=== PATIENT | female | born 1955 | race Caucasian/White ===

== ENCOUNTER 2018-07-11 14:55 | Observation (INO) ==
--- NOTE | 2018-07-11 19:47 | ED ---
HPI General Chief Complaint: Chest Pain Stated Complaint: chest,back,neck pain Time Seen by Provider: 07/11/18 19:43 Source: patient Mode of arrival: ambulatory Limitations: no limitations History of Present Illness HPI narrative: 63-year-old female patient with history of CAD and angina according to her paperwork from her physician, Parkinson's disease, anxiety, irritable bowel disease, presents to the ER today sent in by her primary care doctor because she started having substernal chest pains this morning with radiation to the back, upper neck, and also was mildly anxious. They did an EKG this morning which showed an abnormal T wave inversion and 1 of the leads. Patient states that the pain is getting a bit better. She reports mild shortness of breath earlier but she states is not as bad now. She denies any abdominal pains, coughing, or other symptoms. Chest pain is reported to be a 5 out of 10. Modifying Factors: None Associated Signs & Symptoms: Substernal chest pain with radiation to the back Risk Factors: Coronary artery disease Related Data Home Medications Medication Instructions Recorded Confirmed alprazolam 0.25 mg PO HS PRN 07/11/18 07/11/18 atorvastatin 20 mg PO DAILY 07/11/18 07/11/18 bupropion HCl 75 mg PO DAILY 07/11/18 07/11/18 carbidopa-levodopa 2 tab PO QID 07/11/18 07/11/18 donepezil 5 mg PO HS 07/11/18 07/11/18 fluticasone 1 spray INTRANASAL DAILY 07/11/18 07/11/18 sertraline 150 mg PO DAILY 07/11/18 07/11/18 Allergies Allergy/AdvReac Type Severity Reaction Status Date / Time Sulfa (Sulfonamide Allergy Hives Verified 07/11/18 19:37 Antibiotics) Review of Systems ROS: all other systems reviewed are negative ON LICENSE OF [facility] Medical History Medical History Anginal pain (Acute) Anxiety (Acute) Coronary artery disease (Acute) Depression (Acute) Diverticulosis of colon (Acute) Fibroadenoma of left breast (Acute) GERD (gastroesophageal reflux disease) (Acute) H/O: hysterectomy (Acute) Hiatal hernia (Acute) IBS (irritable bowel syndrome) (Acute) Osteoporosis (Acute) Parkinson disease (Acute) Peripheral neuropathy (Acute) Surgical History Surgical History H/O breast biopsy (Acute) H/O dilation of urethra (Acute) History of carpal tunnel release (Acute) Social History Social History Substance History: No History of Abuse Second Hand Smoke Exposure: No Smoking Status: Never smoker How Often Do You Have a Drink Containing Alcohol: 2 to 4 times a month Recent Travel in [facility] within the Last 8 Weeks: No Recent Out of Country Travel within the Last 8 Weeks: No Immunization History Tetanus Immunization: Unsure Exam Narrative Exam Narrative: GENERAL: Well-developed elderly female patient currently and mild distress. Awake and oriented x3. SKIN: Focused skin assessment warm/dry. HEAD: Atraumatic. Normocephalic. EYES: Pupils equal and round. No scleral icterus. No injection or drainage. ENT: No nasal bleeding or discharge. Mucous membranes pink and moist. NECK: Trachea midline. No JVD. CARDIOVASCULAR: Regular rate and rhythm. No murmur appreciated. RESPIRATORY: No accessory muscle use. Clear to auscultation. Breath sounds equal bilaterally. GASTROINTESTINAL: Abdomen soft, non-tender, nondistended. Hepatic and splenic margins not palpable. MUSCULOSKELETAL: No obvious deformities. No clubbing. No cyanosis. No edema. NEUROLOGICAL: Awake and alert. No obvious cranial nerve deficits. Motor grossly within normal limits. Normal speech. PSYCHIATRIC: Mildly anxious mood and affect; insight and judgment normal. Course Initial Documented Vital Signs Temperature 98.1 F 07/11/18 15:11 Pulse Rate 73 07/11/18 15:11 Respiratory Rate 14 07/11/18 15:11 Blood Pressure 123/55 L 07/11/18 15:11 Pulse Oximetry 100 07/11/18 15:11 Last Documented Vital Signs Temperature 98.1 F 07/11/18 15:11 Pulse Rate 80 07/11/18 19:44 Respiratory Rate 16 07/11/18 19:44 Blood Pressure 140/85 07/11/18 19:44 Pulse Oximetry 99 07/11/18 19:44 Medical Decision Making MDM Narrative Medical decision making narrative: Lab work, chest x-ray, EKGs are fairly unremarkable. Troponins are negative. At this point, my plan would be to admit her for further evaluation and a chest pain center. Medical Screen Exam Complete: Yes Emergency Medical Condition: Yes Differential Diagnosis Differential Diagnosis: ACS versus dysrhythmias versus anxiety attack Lab Data Lab results reviewed: Yes I reviewed the patient's lab results. Result diagrams: 07/11/18 19:49 07/11/18 19:49 Lab Results 07/11/18 07/11/18 Range/Units 19:49 19:49 WBC 6.9 (4.0-11.0) th/mm3 RBC 4.38 (4.00-5.30) mil/mm3 Hgb 13.7 (11.6-15.3) gm/dL Hct 40.2 (35.0-46.0) % MCV 91.8 (80.0-100.0) fL MCH 31.3 (27.0-34.0) pg MCHC 34.1 (32.0-36.0) % RDW 14.3 (11.6-17.2) % Plt Count 321 (150-450) th/mm3 MPV 7.7 (7.0-11.0) fL Neut % (Auto) 61.5 (16.0-70.0) % Lymph % (Auto) 26.9 (9.0-44.0) % Price % (Auto) 8.7 H (0.0-8.0) % Eos % (Auto) 1.7 (0.0-4.0) % Baso % (Auto) 1.2 (0.0-2.0) % Neut # (Auto) 4.3 (1.8-7.7) th/mm3 Lymph # (Auto) 1.9 (1.0-4.8) th/mm3 Price # (Auto) 0.6 (0.0-0.9) th/mm3 Eos # (Auto) 0.1 (0.0-0.4) th/mm3 Baso # (Auto) 0.1 (0.0-0.2) th/mm3 WBC Differential . Differential Comment Auto diff final Sodium 140 (136-145) meq/L Potassium 3.3 L (3.5-5.1) meq/L Chloride 108 H (98-107) meq/L Carbon Dioxide 23.9 (21.0-32.0) meq/L Anion Gap 8 (5-15) meq/L BUN 14 (7-18) mg/dL Creatinine 0.95 (0.50-1.00) mg/dL Estimated GFR 59 L (>89) mL/min Random Glucose 90 (74-106) mg/dL Calcium 9.0 (8.5-10.1) mg/dL Total Bilirubin 0.6 (0.2-1.0) mg/dL AST 29 (15-37) U/L ALT 12 (10-53) U/L Alkaline Phosphatase 88 (45-117) U/L Troponin I Less than 0.02 L (0.02-0.05) ng/mL Total Protein 7.0 (6.4-8.2) g/dL Albumin 3.8 (3.4-5.0) g/dL Imaging Data Attestation: I personally reviewed and interpreted this imaging study as follows : Radiologist's impression: Chest X-Ray 07/11/18 19:44 CONCLUSION: 1. No acute abnormality or significant interval change. ECG Data Attestation: I personally reviewed and interpreted this ECG as follows: Interpretation: EKG shows NSR, no ST elevation or depression, and no arrhythmias. Notable for T wave inversion in V2. Discharge Plan Discharge Disposition Patient Disposition: ED Admit(ED Internal Use Only) Discharge Condition Condition: Stable Discharge Order Discharge Orders: ED Use Only Admit Order (Routine); Ordered 07/11/18 Ordered By: Mark Galan Discharge Details Anticipated Discharge Date: 07/11/18 Diagnosis: Chest pain Physicians Team ED Provider: Mark Galan Primary Care Provider: UNKNOWN, Rxs /Orders / Referrals /Forms Prescriptions: No Action atorvastatin 20 mg Tablet 20 mg PO DAILY RF: 0 donepezil 5 mg Tablet 5 mg PO HS RF: 0 carbidopa-levodopa 25-100 mg Tablet Extended Release 2 tab PO QID RF: 0 sertraline 100 mg Tablet 150 mg PO DAILY RF: 0 alprazolam 0.25 mg Tablet 0.25 mg PO HS PRN (Reason: Anxiety) RF: 0 bupropion HCl 75 mg Tablet 75 mg PO DAILY RF: 0 fluticasone 50 mcg/actuation [place],Suspension 1 spray INTRANASAL DAILY RF: 0 Discharge Instructions Patient Printed Instructions: Chest Pain (ED) Discharge Interventions Interventions: Vital Signs Last Done: 07/11/18 19:44 Status ED Status: With Doctor
[2018-07-11 20:20] LABS: Baso # (Auto) 0.1 th/mm3 (0.0-0.2); Baso % (Auto) 1.2 % (0.0-2.0); Eos # (Auto) 0.1 th/mm3 (0.0-0.4); Eos % (Auto) 1.7 % (0.0-4.0); Hematocrit 40.2 % (35.0-46.0); Hemoglobin 13.7 gm/dL (11.6-15.3); Lymph # (Auto) 1.9 th/mm3 (1.0-4.8); Lymph % (Auto) 26.9 % (9.0-44.0); Mean Corpuscular HGB Conc 34.1 % (32.0-36.0); Mean Corpuscular Hemoglobin 31.3 pg (27.0-34.0); Mean Corpuscular Volume 91.8 fL (80.0-100.0); Mean Platelet Volume 7.7 fL (7.0-11.0); Mono # (Auto) 0.6 th/mm3 (0.0-0.9); Mono % (Auto) 8.7 % (0.0-8.0); Neut # (Auto) 4.3 th/mm3 (1.8-7.7); Neut % (Auto) 61.5 % (16.0-70.0); Platelet Count 321 th/mm3 (150-450); Red Blood Count 4.38 mil/mm3 (4.00-5.30); Red Cell Distribution Width 14.3 % (11.6-17.2); White Blood Count 6.9 th/mm3 (4.0-11.0)
--- NOTE | 2018-07-11 20:32 | XR ---
EXAM DATE: 07/11/2018 8:28 PM EST AGE/SEX: 63 years / Female INDICATIONS: Patient presents with chest and shoulder blade pain for 1 day. CLINICAL DATA: This is the patient's initial encounter. Patient reports that signs and symptoms have been present for 1 day and indicates a pain score of 8/10. MEDICAL/SURGICAL HISTORY: Cardiovascular disease. None. COMPARISON: [facility] [place], CHEST PA & LAT, 12/26/2015. . FINDINGS: No significant new focal pleural or parenchymal opacities. The cardiomediastinal contours are unrema rkable. Osseous structures are intact. CONCLUSION: 1. No acute abnormality or significant interval change. Electronically signed by: Osman Edge MD Board Certified Radiologist 07/11/2018 8:30 PM EST
[2018-07-11 20:35] LABS: Albumin 3.8 g/dL (3.4-5.0); Anion Gap 8 meq/L (5-15); Aspartate Aminotransferase 29 U/L (15-37); Blood Urea Nitrogen 14 mg/dL (7-18); Carbon Dioxide 23.9 meq/L (21.0-32.0); Chloride 108 meq/L (98-107); Glomerular Filtration Rate 59 mL/min (>89); Glucose,Random 90 mg/dL (74-106); Potassium 3.3 meq/L (3.5-5.1); Sodium 140 meq/L (136-145)
[2018-07-11 20:36] LABS: Alanine Aminotransferase 12 U/L (10-53)
[2018-07-11 20:40] LABS: Alkaline Phosphatase 88 U/L (45-117)
[2018-07-11 23:42] LABS: Creatine Kinase 101 U/L (26-192)
[2018-07-12] MEDS: Aspirin 325 MG Tablet PO SCH ×2 (01:36→08:33)
[2018-07-12 02:20] LABS: Creatine Kinase 91 U/L (26-192)
[2018-07-12] MEDS ORDERED: Potassium Chloride 10 MEQ ER Capsule PO ONE (07:30)
[2018-07-12 08:38] VITALS: RESP 18
[2018-07-12] MEDS ORDERED: ALPRAZolam 0.25 MG Tablet PO PRN (09:39)
--- NOTE | 2018-07-12 09:48 | P.HPCA ---
History of Present Illness Primary Care Physician: UNKNOWN Chief Complaint: Chest pain History of Present Illness: This is a 63-year-old female with history of Parkinson's disease and hyperlipidemia that presents to ED complaint of constant central chest pressure and discomfort between her shoulder blades that began yesterday morning soon after waking up at 8:30 in the morning. Discomfort has been constant however intensity waxes and wanes. Has found nothing in particular to bring on the discomfort. Denies shortness of breath, nausea, or diaphoresis. Symptoms are moderate. She has had this before. States she had this worked up 10 years ago and had a cardiac catheterization and was told that she had small arteries but otherwise looked okay. Denies any recent stress test or other type of cardiac evaluations. Denies recent illness. Denies fevers or chills. Past medical history: Parkinson's disease and hyperlipidemia. Denies hypertension, CAD, and diabetes. Family history: States her father had a CABG in his 70s and her mother at 68 of a myocardial infarction. Social history: Lifetime non-smoker. Occasional alcohol. Denies illicit drug use. - Diagnosis (1) Chest pain (2) Hyperlipidemia (3) Parkinsons disease Review of Systems General: Patient denies fevers, chills, and recent travel. HEENT: Patient denies headache, sore throat, difficulty swallowing. Cardiovascular: Has the chest discomfort as mentioned above. Denies sensation of heart beating rapidly or irregularly. No syncope. Denies diaphoresis. Respiratory: Denies shortness of breath or inspirational chest discomfort. Denies coughing wheezing or hemoptysis. GI: Patient denies nausea, vomiting, diarrhea, abdominal pain, bloody stools. Musculoskeletal: Patient denies joint pain or edema. Denies calf pain or edema. Neurovascular: Patient denies numbness, tingling, weakness in extremities. Denies headache. Endocrine: Denies polyuria and polydipsia. Hematologic: Denies easy bruising. Skin: Denies rash or itching. PMFSH - History History Provided By: Patient - Medical History Medical History: Medical History (Last Reviewed 07/11/18 @ 19:47 by Mark Galan MD) Anginal pain Anxiety Coronary artery disease Depression Diverticulosis of colon Fibroadenoma of left breast GERD (gastroesophageal reflux disease) H/O: hysterectomy Hiatal hernia IBS (irritable bowel syndrome) Osteoporosis Parkinson disease Peripheral neuropathy - Surgical History Surgical History: Surgical History (Last Reviewed 07/11/18 @ 19:47 by Mark Galan MD) H/O breast biopsy H/O dilation of urethra History of carpal tunnel release - Tobacco History Second Hand Smoke Exposure: No Smoking Status: Never smoker - Alcohol History How Often Do You Have a Drink Containing Alcohol: 2 to 4 times a month - Substance Use History Substance History: No History of Abuse - Travel History Recent Travel in the [place] Within the Last 8 Weeks: No Recent Travel Out of the Country Within the Last 8 Weeks: No - Immunization History Tetanus Immunization: Unsure Medications and Allergies Active Medications: Active Medications Albuterol (Albuterol Neb (Prn)) 2.5 mg NEB UNSCH PRN PRN Reason: SHORTNESS OF BREATH/WHEEZING Albuterol (Duoneb Neb (Prn)) 1 ampul NEB UNSCH PRN PRN Reason: SHORTNESS OF BREATH/WHEEZING Alprazolam (Xanax) 0.25 mg PO HS PRN PRN Reason: Anxiety Aspirin (Aspirin) 325 mg PO DAILY [facility] Last Admin: 07/12/18 08:33 Dose: 325 mg Atorvastatin Calcium (Lipitor) 20 mg PO DAILY [facility] Bupropion HCl (Wellbutrin) 75 mg PO DAILY [facility] Non-Formulary Medication (Carbidopa-Levodopa [Carbidopa-Levodopa]) 2 tab PO QID [facility] Regadenoson (Lexiscan Inj) 0.4 mg IV.PUSH ONCE ONE Stop: 07/12/18 09:37 Sertraline HCl (Zoloft) 150 mg PO DAILY [facility] Sodium Chloride (Ns Flush) 2 ml IV.FLUSH UNSCH PRN PRN Reason: FLUSH AFTER USING IV ACCESS Sodium Chloride (Ns Flush) 2 ml IV.FLUSH BID [facility] Last Admin: 07/11/18 22:55 Dose: 2 ml Sodium Chloride (Ns Flush) 2 ml IV.FLUSH PRN PRN PRN Reason: FLUSH AFTER USING IV ACCESS Allergies Allergy/AdvReac Type Severity Reaction Status Date / Time Sulfa (Sulfonamide Allergy Hives Verified 07/11/18 19:37 Antibiotics) Home Medications Medication Instructions Recorded Confirmed Type alprazolam 0.25 mg PO HS PRN 07/11/18 07/11/18 History atorvastatin 20 mg PO DAILY 07/11/18 07/11/18 History bupropion HCl 75 mg PO DAILY 07/11/18 07/11/18 History carbidopa-levodopa 2 tab PO QID 07/11/18 07/11/18 History donepezil 5 mg PO HS 07/11/18 07/11/18 History fluticasone 1 spray INTRANASAL DAILY 07/11/18 07/11/18 History sertraline 150 mg PO DAILY 07/11/18 07/11/18 History Exam Vital signs: Vital Signs 07/11/18 15:11 07/11/18 19:44 07/11/18 23:48 Temperature 98.1 F Pulse Rate 73 80 72 Respiratory Rate 14 16 16 Blood Pressure 123/55 L 140/85 109/57 L Pulse Oximetry 100 99 97 07/12/18 04:00 07/12/18 08:36 07/12/18 09:28 Temperature 98.5 F Pulse Rate 76 83 Respiratory Rate 16 18 Blood Pressure 117/63 113/58 L Pulse Oximetry 97 95 100 Intake & Output 07/11/18 07/12/18 07/12/18 18:59 06:59 18:59 Intake Total 480 / 480 Balance 480 / 480 Weight 49.442 kg 48.988 kg Intake: Oral 480 / 480 Other: # Voids 1 Weight On Admission 48.988 kg Narrative: GENERAL: This is a well-nourished, well-developed patient, in no apparent distress. Patient speaks in clear complete sentences. Patient is pleasant. HEENT: Head is atraumatic and normocephalic. Neck is supple without lymphadenopathy and trachea is midline. No JVD or carotid bruits. CARDIOVASCULAR: Regular rate and rhythm without murmurs, gallops, or rubs. RESPIRATORY: Clear to auscultation. Breath sounds equal bilaterally. No wheezes , rales, or rhonchi. Chest wall is tender but does not truly feel similar to the discomfort that she has had since yesterday morning. No use of accessory muscles. GASTROINTESTINAL: Abdomen is nontender, nondistended. Abdomen soft. No obvious pulsatile mass or bruit. No CVA tenderness. Strong femoral pulses bilaterally. Normal bowel sounds in all quadrants. MUSCULOSKELETAL: Patient is moving upper and lower extremities freely. No calf tenderness or edema, no Homans sign. Strong pulses in upper and lower extremities. NEUROLOGICAL: Patient is alert and oriented. Cranial nerves 2-12 are grossly intact. No focal deficits and speech is clear. SKIN: No rash and turgor is normal. Results 07/11/18 19:49 07/11/18 19:49 Cardiac Enzymes 07/11/18 07/11/18 07/12/18 Range/Units 19:49 22:55 01:50 AST 29 (15-37) U/L Troponin I Less than 0.02 L Less than 0.02 L Less than 0.02 L (0.02-0.05) ng/mL CBC 07/11/18 Range/Units 19:49 WBC 6.9 (4.0-11.0) th/mm3 RBC 4.38 (4.00-5.30) mil/mm3 Hgb 13.7 (11.6-15.3) gm/dL Hct 40.2 (35.0-46.0) % Plt Count 321 (150-450) th/mm3 Neut # (Auto) 4.3 (1.8-7.7) th/mm3 Lymph # (Auto) 1.9 (1.0-4.8) th/mm3 [place] # (Auto) 0.6 (0.0-0.9) th/mm3 Eos # (Auto) 0.1 (0.0-0.4) th/mm3 Baso # (Auto) 0.1 (0.0-0.2) th/mm3 Comprehensive Metabolic Panel 07/11/18 Range/Units 19:49 Sodium 140 (136-145) meq/L Potassium 3.3 L (3.5-5.1) meq/L Chloride 108 H (98-107) meq/L Carbon Dioxide 23.9 (21.0-32.0) meq/L BUN 14 (7-18) mg/dL Creatinine 0.95 (0.50-1.00) mg/dL Calcium 9.0 (8.5-10.1) mg/dL AST 29 (15-37) U/L ALT 12 (10-53) U/L Alkaline Phosphatase 88 (45-117) U/L Total Protein 7.0 (6.4-8.2) g/dL Albumin 3.8 (3.4-5.0) g/dL Intake and Output 07/11/18 07/12/18 07/12/18 22:59 06:59 14:59 Intake Total 480 / 480 Balance 480 / 480 Intake: Oral 480 / 480 Other: # Voids 1 Weight 49.442 kg 48.988 kg Weight On Admission 48.988 kg - Imaging and Cardiology Imaging: Impressions Chest X-Ray 07/11/18 19:44 CONCLUSION: 1. No acute abnormality or significant interval change. EKG interpretations - EKG EKG shows: sinus rhythm (EKG is sinus rhythm with nonspecific T wave changes.) Caprini VTE Risk Assessment Caprini VTE Risk Assessment: Moderate/High Risk (score >= 2) Caprini Risk Assessment Model: Point Value = 1 Point Value = 2 Point Value = 3 Point Value = 5 Age 41-60 Minor surgery BMI > 25 kg/m2 Swollen legs Varicose veins or History of unexplained or recurrent spontaneous Oral contraceptives or hormone replacement Sepsis (< 1 month) Serious lung disease, including pneumonia (< 1 month) Abnormal pulmonary function Acute myocardial infarction Congestive heart failure (< 1 month) History of inflammatory bowel disease Medical patient at bed rest Age 61-74 Arthroscopic surgery Major open surgery (> 45 min) Laparoscopic surgery (> 45 min) Malignancy Confined to bed (> 72 hours) Immobilizing plaster cast Central venous access Age >= 75 History of VTE Family history of VTE Factor V Leiden Prothrombin [id number] Lupus anticoagulant Anticardiolipin antibodies Elevated serum homocysteine Heparin-induced thrombocytopenia Other congenital or acquired thrombophilia Stroke (< 1 month) Elective arthroplasty Hip, pelvis, or leg fracture Acute spinal cord injury (< 1 month) Prophylaxis Regimen: Total Risk Factor Score Risk Level Prophylaxis Regimen 0-1 Low Early ambulation 2 Moderate Order ONE of the following: *Sequential Compression Device (SCD) *Heparin 5000 units SQ BID 3-4 Higher Order ONE of the following medications: *Heparin 5000 units SQ TID *Enoxaparin/Lovenox 40 mg SQ daily (WT < 150 kg, CrCl > 30 mL/min) *Enoxaparin/Lovenox 30 mg SQ daily (WT < 150 kg, CrCl > 10-29 mL/min) *Enoxaparin/Lovenox 30 mg SQ BID (WT < 150 kg, CrCl > 30 mL/min) AND/OR *Sequential Compression Device (SCD) 5 or more Highest Order ONE of the following medications: *Heparin 5000 units SQ TID (Preferred with Epidurals) *Enoxaparin/Lovenox 40 mg SQ daily (WT < 150 kg, CrCl > 30 mL/min) *Enoxaparin/Lovenox 30 mg SQ daily (WT < 150 kg, CrCl > 10-29 mL/min) *Enoxaparin/Lovenox 30 mg SQ BID (WT < 150 kg, CrCl > 30 mL/min) AND *Sequential Compression Device (SCD) Assessment and Plan - Assessment (1) Chest pain Code(s): R07.9 - Chest pain, unspecified Status: Acute (2) Hyperlipidemia Code(s): E78.5 - Hyperlipidemia, unspecified Status: Acute (3) Parkinsons disease Code(s): G20 - Parkinson's disease Status: Acute - Plan * Chest pain: Patient has had serial cardiac enzymes and EKGs for ruling out purposes and will be seen by Dr. Pino of cardiology in chest pain center. She will undergo a Lexiscan and if nonischemic will be discharged home with instructions to follow-up with her PCP. Return to ED for interval issues. * Hyperlipidemia: Continue medication. * Parkinson's disease: Continue medication. Patient is stable at this time. She is agreeable to this plan. H&P: Quality - VTE Deep Vein Thrombosis/Pulmonary Embolism Present on Admission: No
[2018-07-12] MEDS ORDERED: Sertraline 100 MG Tablet PO SCH (10:00)
--- NOTE | 2018-07-12 10:35 | P.PNCA ---
Subjective Interval history: Very pleasant 63-year-old lady presented with a history of mid chest discomfort which she now describes as radiating to the back. This pain has been constant since she woke yesterday morning but does fluctuate somewhat. She has had no shortness of breath with it but some slight diaphoresis. She had a cardiac evaluation about [address] Rios including a cath which apparently was negative other than that she had small vessels. Her current presentation may be associated with her somewhat long history of Parkinson's disease. She has had Parkinson's for about 10 years and is on multiple medications. She is primarily distressed by the increasing stiffness, muscle pain, anxiety and depression and some memory loss. She is followed for this by Dr. Smith a neurologist especially in the movement disorders. History is otherwise as documented in previous notes. Medications and Allergies Active Medications: Active Medications Albuterol (Albuterol Neb (Prn)) 2.5 mg NEB UNSCH PRN PRN Reason: SHORTNESS OF BREATH/WHEEZING Albuterol (Duoneb Neb (Prn)) 1 ampul NEB UNSCH PRN PRN Reason: SHORTNESS OF BREATH/WHEEZING Alprazolam (Xanax) 0.25 mg PO HS PRN PRN Reason: Anxiety Aspirin (Aspirin) 325 mg PO DAILY COUNT INCLUDES THE [facility] Last Admin: 07/12/18 08:33 Dose: 325 mg Atorvastatin Calcium (Lipitor) 20 mg PO DAILY COUNT INCLUDES THE [facility] Bupropion HCl (Wellbutrin) 75 mg PO DAILY COUNT INCLUDES THE [facility] Carbidopa/Levodopa (Sinemet 25/100 Mg) 2 tab PO QID COUNT INCLUDES THE [facility] Regadenoson (Lexiscan Inj) 0.4 mg IV.PUSH ONCE ONE Stop: 07/12/18 11:01 Sertraline HCl (Zoloft) 150 mg PO DAILY COUNT INCLUDES THE [facility] Sodium Chloride (Ns Flush) 2 ml IV.FLUSH UNSCH PRN PRN Reason: FLUSH AFTER USING IV ACCESS Sodium Chloride (Ns Flush) 2 ml IV.FLUSH BID COUNT INCLUDES THE [facility] Last Admin: 07/12/18 10:18 Dose: 2 ml Sodium Chloride (Ns Flush) 2 ml IV.FLUSH PRN PRN PRN Reason: FLUSH AFTER USING IV ACCESS Allergies Allergy/AdvReac Type Severity Reaction Status Date / Time Sulfa (Sulfonamide Allergy Hives Verified 07/11/18 19:37 Antibiotics) Home Medications Medication Instructions Recorded Confirmed Type alprazolam 0.25 mg PO HS PRN 07/11/18 07/11/18 History atorvastatin 20 mg PO DAILY 07/11/18 07/11/18 History bupropion HCl 75 mg PO DAILY 07/11/18 07/11/18 History carbidopa-levodopa 2 tab PO QID 07/11/18 07/11/18 History donepezil 5 mg PO HS 07/11/18 07/11/18 History fluticasone 1 spray INTRANASAL DAILY 07/11/18 07/11/18 History sertraline 150 mg PO DAILY 07/11/18 07/11/18 History Physical Exam Vital signs: Vital Signs 07/11/18 15:11 07/11/18 19:44 07/11/18 23:48 Temperature 98.1 F Pulse Rate 73 80 72 Respiratory Rate 14 16 16 Blood Pressure 123/55 L 140/85 109/57 L Pulse Oximetry 100 99 97 07/12/18 04:00 07/12/18 08:36 07/12/18 09:28 Temperature 98.5 F Pulse Rate 76 83 Respiratory Rate 16 18 Blood Pressure 117/63 113/58 L Pulse Oximetry 97 95 100 Intake & Output 07/11/18 07/12/18 07/12/18 18:59 06:59 18:59 Intake Total 480 / 480 Balance 480 / 480 Weight 49.442 kg 48.988 kg Intake: Oral 480 / 480 Other: # Voids 1 Weight On Admission 48.988 kg Narrative: Well-nourished well-developed but thin lady in no acute distress in spite of the fact that she still complains of pain. She has a very mild tremor and does exhibit some anxiety. Skin warm and dry normal texture and turgor Head normocephalic atraumatic Eyes PERRLA EOMI sclera clear mild bilateral cataracts Chest clear to auscultation with no rales wheezes or rhonchi Cardiovascular PMI is not displaced the rhythm is regular there are no gallop rub or murmur Extremities reveal no clubbing cyanosis or edema Neurologic patient has very mild diffuse tremor but fairly good motor strength upper and lower extremities. This appears to be appropriately equal. There is very slight gegenhalten noted in the upper extremity but largely not very impressive for Parkinson's which reportedly is this far advanced. Gait motion and balance were not tested further. Results 07/11/18 19:49 07/11/18 19:49 Cardiac Enzymes 07/11/18 07/11/18 07/12/18 Range/Units 19:49 22:55 01:50 AST 29 (15-37) U/L Troponin I Less than 0.02 L Less than 0.02 L Less than 0.02 L (0.02-0.05) ng/mL CBC 07/11/18 Range/Units 19:49 WBC 6.9 (4.0-11.0) th/mm3 RBC 4.38 (4.00-5.30) mil/mm3 Hgb 13.7 (11.6-15.3) gm/dL Hct 40.2 (35.0-46.0) % Plt Count 321 (150-450) th/mm3 Neut # (Auto) 4.3 (1.8-7.7) th/mm3 Lymph # (Auto) 1.9 (1.0-4.8) th/mm3 [place] # (Auto) 0.6 (0.0-0.9) th/mm3 Eos # (Auto) 0.1 (0.0-0.4) th/mm3 Baso # (Auto) 0.1 (0.0-0.2) th/mm3 Comprehensive Metabolic Panel 07/11/18 Range/Units 19:49 Sodium 140 (136-145) meq/L Potassium 3.3 L (3.5-5.1) meq/L Chloride 108 H (98-107) meq/L Carbon Dioxide 23.9 (21.0-32.0) meq/L BUN 14 (7-18) mg/dL Creatinine 0.95 (0.50-1.00) mg/dL Calcium 9.0 (8.5-10.1) mg/dL AST 29 (15-37) U/L ALT 12 (10-53) U/L Alkaline Phosphatase 88 (45-117) U/L Total Protein 7.0 (6.4-8.2) g/dL Albumin 3.8 (3.4-5.0) g/dL Intake and Output 07/11/18 07/12/18 07/12/18 22:59 06:59 14:59 Intake Total 480 / 480 Balance 480 / 480 Intake: Oral 480 / 480 Other: # Voids 1 Weight 49.442 kg 48.988 kg Weight On Admission 48.988 kg - Imaging and Cardiology Imaging: Impressions Chest X-Ray 07/11/18 19:44 CONCLUSION: 1. No acute abnormality or significant interval change. Assessment and Plan - Assessment (1) Chest pain Code(s): R07.9 - Chest pain, unspecified Status: Acute Plan: This lady presents with atypical chest pain and has already ruled out for ACS by chest pain center protocol. I believe it is highly likely that her presentation is related to her underlying Parkinson's disease which appears to be fairly advanced. In any case she will be evaluated with a Lexiscan. If this is negative she will be discharged back to follow-up with Dr. Ryder and Dr. Smith. If positive further evaluation will be entertained. (2) Hyperlipidemia Code(s): E78.5 - Hyperlipidemia, unspecified Status: Acute (3) Parkinsons disease Code(s): G20 - Parkinson's disease Status: Acute - Plan * Chest pain: Patient has had serial cardiac enzymes and EKGs for ruling out purposes and will be seen by Dr. Pino of cardiology in chest pain center. She will undergo a Lexiscan and if nonischemic will be discharged home with instructions to follow-up with her PCP. Return to ED for interval issues. * Hyperlipidemia: Continue medication. * Parkinson's disease: Continue medication. Patient is stable at this time. She is agreeable to this plan.
[2018-07-12] MEDS ORDERED: Regadenoson Inj 0.4 MG/5 ML Syringe IV.PUSH ONE (11:00)
[2018-07-12 11:06] VITALS: BP 124/60; TEMP 99.3; O2SAT 95
--- NOTE | 2018-07-12 12:18 | ECG ---
Date Performed: 07/12/2018 Time Performed: 01:54:02 PTAGE: 63 years EKG: Sinus rhythm MODERATE T-WAVE ABNORMALITY, CONSIDER ANTERIOR ISCHEMIA ABNORMAL ECG No significant change PREVIOUS TRACING : 07/11/2018 23.06 DOCTOR: Jason Pino Interpretating Date/Time 07/12/2018 12:18:14
--- NOTE | 2018-07-12 12:21 | ECG ---
Date Performed: 07/11/2018 Time Performed: 23:06:42 PTAGE: 63 years EKG: Sinus rhythm ST DEVIATION AND MODERATE T-WAVE ABNORMALITY, CONSIDER ANTERIOR ISCHEMIA ABNORMAL ECG No significant change PREVIOUS TRACING : 07/11/2018 15.44 DOCTOR: Jason Pino Interpretating Date/Time 07/12/2018 12:19:16
--- NOTE | 2018-07-12 12:23 | ECG ---
Date Performed: 07/11/2018 Time Performed: 15:44:34 PTAGE: 63 years EKG: Sinus rhythm POSSIBLE LEFT ATRIAL ENLARGEMENT MINIMAL ST DEPRESSION with nonspecific ST-T wave but no significant change from previous BORDERLINE ECG PREVIOUS TRACING : 07/11/2018 15.43 DOCTOR: Jason Pino Interpretating Date/Time 07/12/2018 12:21:06
[2018-07-12 13:40] VITALS: PULSE 100
--- NOTE | 2018-07-12 14:37 | NM ---
EXAM DATE: 07/12/2018 2:14 PM EST AGE/SEX: 63 years / Female INDICATIONS:Angina. Coronary artery disease CLINICAL DATA: This is the patient's initial encounter. Patient reports that signs and symptoms have been present for 1 day and indicates a pain score of 6/10. MEDICAL/SURGICAL HISTORY: Diverticulosis. Parkinson's disease. Gastroesophageal reflux diseas e. Hysterectomy. COMPARISON: No prior exams available for comparison. DOSE: 8.1 mCi Tc 99m Myoview at rest 25.7 mCi [id number] at stress 0.4 mg Lexiscan STRESS SYMPTOMS: Dyspnea, leg, chest and back pain, nausea. EJECTION FRACTION: >70 % TECHNIQUE: The patient underwent pharmacologic stress with infusion of prescribed dose. Continuous ECG tracing was monitored during stress. Gated SPECT imaging was performed after stress and conventi onal SPECT imaging was performed at rest. The examination was performed on a SPECT/CT scanner, both attenuation and non-corrected datasets were reviewed. FINDINGS: Distribution: The maximum perfused segment at stress is in the inferoseptal wall. Perfusion Study: The pattern of perfusion at stress is within normal limits. Gated Study: There are intact wall motion and wall thickening without hypokinetic or dyskinetic segm ents. The ejection fraction is calculated at >70%. RISK CATEGORY: Low (<1% Annual Mortality Rate) CONCLUSION: 1. Negative examination. Electronically signed by: Guanako Roberts MD Board Certified Radiologist 07/12/2018 2:36 PM EST
[2018-07-13] MEDS ORDERED: buPROPion 75 MG Tablet PO SCH (10:00)
--- NOTE | 2018-07-14 12:20 | TR ---
Date Performed: 07/12/2018 Time Performed: 13:06:56 DOCTOR: Jason Pino DRUG LIST: CLINICAL HISTORY: REASON FOR TEST: REASON FOR ENDING: OBSERVATION: CONCLUSION: Lexiscan stress test was performed under standard four minute protocol. Radionuclide was injected one minute prior to ending the test. No electrocardiographic abormalities were present to suggest ischemia. Nuclear imaging and interpretation are pending. COMMENTS:
== END 2018-07-12 15:16 | disposition home or self-care (01) ==
LOC: NEPD 14:55 → NEDA 14:55 → NEPGCP 21:47
PROVIDERS: ADMIT Internal Medicine Cardiovascular Disease; ATTEND Internal Medicine Cardiovascular Disease
CPT/HCPCS: 71010; 71045; 78452; 80053; 82550; 84484; 85025; 93005; 93017; 99285; A9502; G0378; J2785; Q9969